=== PATIENT | female | born 1985 | race Caucasian/White ===

== ENCOUNTER 2024-06-30 20:21 | Emergency (ER) | payer OTHER, SELFPAY ==
[2024-06-30 20:32] VITALS: BP 133/108
--- NOTE | 2024-06-30 20:44 | ED.CVA ---
History of Present Illness
General
Chief Complaint: CVA/TIA Symptoms
Source: patient
Time Seen by Provider: 06/30/24 20:29
Onset of Stroke Symptoms
Onset of symptoms known: Yes
Date of onset of symptoms: 06/29/24
History of Present Illness
History of Present Illness:
38-year-old female presents to the emergency room from [facility] for evaluation of headache, left-sided paresthesias and some word finding difficulty. Symptoms of paresthesias and headache been present for the past day or so. Word
finding seem to get worse today. No focal weakness. Patient denies any trauma. She has a history of thyroid storm and was concerned to be related to her thyroid. She denies any recreational drug use. Patient does have a history of Tourette's
causing her to have some tics.
Phy Exam
Physical Exam
Physical Exam:
General: Awake, Alert, Oriented X3. No acute distress.
Vitals: unremarkable
Head: Atraumatic
Eyes: Pupils equal, EOMI
Throat: Airway intact, no exudates
Neck: Trachea midline
Lungs: Clear and equal b/l
Heart: Regular rate, no murmurs
Abd: Soft, Nontender, No pulsatile mass
Neuro: Facial muscles are symmetric, muscle strength 5/5 in all extremities, sensation is decreased to light touch on the left.
Skin: Warm, dry, no rash
Extremities: pulses equal b/l, no edema
Course
Orders/Labs/Results
Orders:
Orders
06/30/24 20:41
Electrocardiogram (*1) Stat
Reason for Study: Other
Other Reason for Exam: neuro symptoms
CT HEAD STROKE ALERT W/o Cont Urgent
Comment:
Reason For Exam: aphasia, left sided paresthesia
CT HEAD/NECK ANG STROKE ALERT Urgent
Comment:
Reason For Exam: aphasia, left sided paresthesia
Cardiac Monitoring- Treatment ONCE
06/30/24 20:42
EKG- Treatment ONCE
Urine Drug Abuse Screen Urgent
06/30/24 20:47
Complete Blood Count/With Diff Urgent
Comprehensive Metabolic Panel Urgent
Free T4 Urgent
TSH Reflex To Free T4 Urgent
Abnormal Lab Results
06/30/24
20:47
MCH 26.4 L pg
(27.0-31.0)
MCHC 32.6 L g/dL
(33.0-37.0)
RDW 15.6 H %
(11.5-14.5)
Glucose 108 H mg/dl
(70-99)
TSH (Reflex) 5.30 H uIU/ml
(0.47-4.68)
06/30/24 20:47
06/30/24 20:47
Vital Signs
Initial and Last Documented VS:
Initial Vital Signs
Temp Pulse Resp Pulse Ox
99.3 F 116 24 96
06/30/24 20:27 06/30/24 20:27 06/30/24 20:27 06/30/24 20:27
Last Documented Vital Signs
Temp Pulse Resp BP Pulse Ox
99.3 F 108 12 122/78 98
06/30/24 20:27 06/30/24 21:30 06/30/24 21:30 06/30/24 21:29 06/30/24 21:30
MDM/Problems Addressed
Differential Diagnosis Includes:
Tension headache, cluster headache, migraine
MDM/Problems Addressed:
Patient presents with a headache and concerned that her thyroid is acting up. Patient initially tachycardic but heart rate is normalized. Blood pressure is normal. CT shows no acute abnormalities. Labs are reassuring. Patient feels better.
Stable for discharge home. TSH is mildly high but T4 is normal.
*Radiology
Radiology exam reviewed: radiology read reviewed
*Pulse Oximetry
Patient hypoxic: no
*Critical Care Note
Total Time (30-74mins, 75-104mins- exclusive of procedures): Not Applicable
ED Attending Note
-
Portions of this chart may have been created with voice recognition software.� Occasional wrong word or��sound alike� substitutions may have occurred due to the inherent limitations of voice recognition software.
Discharge Plan
Departure
Patient Disposition: Home (Routine Discharge)
Date of Disposition: 06/30/24
Time of Disposition: 22:29
Patient with high blood pressure during this ER visit?: No
Condition: Good
Discharge Problem:
Headache, acute
Instructions: Headache, Adult (DC)
Referrals:
[facility] [Family Provider] -
Activity Restrictions/Additional Instructions:
I recommend pt sleep in a bottom bunk due to her tics from [place]
Interventions
Interventions:
*General Assessment Last Done: 06/30/24 20:30
*Neglect/Abuse Screening Last Done: 06/30/24 20:30
ED- Fall Risk Assessment Last Done: 06/30/24 20:30
ED- Cardiac Assessment Last Done: 06/30/24 20:30
ED- Neurological Assessment Last Done: 06/30/24 22:30
ED- Pulmonary Assessment Last Done: 06/30/24 20:30
Discharge Date and Time
Print Language: DIVEHI
[2024-06-30 20:50] VITALS: BMI 24.3
[2024-06-30 20:55] LABS: % Eosinophils 4.8 % (0-6); % Immature Granulocytes 0.1 % (0-0.5); % Lymphocytes 24.2 % (20.5-51.1); % Monocytes 7.9 % (1.7-9.3); Absolute Basophils 0.1 10^3/uL (0-0.2); Absolute Eosinophils 0.3 10^3/uL (0-0.7); Absolute Lymphocytes 1.7 10^3/uL (1.2-3.4); Absolute Monocytes 0.6 10^3/uL (0.1-0.6); Absolute Neutrophils 4.4 10^3/uL (1.4-6.5); Hematocrit 37.1 % (37.0-47.0); Hemoglobin 12.1 g/dL (12.0-16.0); Mean Corp Hgb Conc. 32.6 g/dL (33.0-37.0); Mean Corpuscular Hgb 26.4 pg (27.0-31.0); Mean Platelet Volume 10.3 fL (7.4-10.4); Nucleated Red Blood Cells % 0 %; Platelet Count 199 10^3/uL (130-400); Red Blood Cell Count 4.58 10^6/uL (4.20-5.40); Red Cell Dist. Width 15.6 % (11.5-14.5); White Blood Cell Count 7.1 10^3/uL (4.8-10.8)
[2024-06-30 21:08] LABS: ALT (SGPT) 20 U/L (0-35); AST (SGOT) 23 U/L (14-36); Albumin 4.2 g/dl (3.5-5.0); Alkaline Phosphatase 60 U/L (38-126); Blood Urea Nitrogen 13 mg/dl (7-17); Calcium 8.8 mg/dl (8.4-10.2); Carbon Dioxide 29 mmol/L (22-30); Chloride 100 mmol/L (98-107); Estimated Creatinine Clearance 98 ml/min; Glucose 108 mg/dl (70-99); Potassium 4.3 mmol/L (3.5-5.1); Sodium 136 mmol/L (135-145); Total Bilirubin 0.4 mg/dl (0.2-1.3); eGFR > 60.00
[2024-06-30 21:09] VITALS: BP 122/78
[2024-06-30 21:29] VITALS: BP 122/78
[2024-06-30 22:40] VITALS: BP 119/81
== END 2024-06-30 23:03 | disposition home or self-care (01) ==
LOC: EMR 20:21
PROVIDERS: EMERGENCY PHYSICIAN Emergency Medicine
DX: R51.9 Headache, unspecified (principal); R20.2 Paresthesia of skin; R00.0 Tachycardia, unspecified; R47.89 Other speech disturbances; F95.2 Tourette's disorder; Z88.1 Allergy status to other antibiotic agents; Z88.8 Allergy status to other drugs, medicaments and biological substances
CPT/HCPCS: 99284; 70450; 70496; 70498; 80053; 84439; 84443; 85025; Q9967